=== PATIENT | female | born 1960 | race Caucasian/White ===

== ENCOUNTER 2024-11-06 13:32 | Emergency (ER) | payer MEDICARE, SELFPAY ==
[2024-11-06 13:40] VITALS: BP 161/88
--- NOTE | 2024-11-06 15:05 | ED.GENMED ---
History of Present Illness
<GANGA Conde Last Filed: 11/06/24 17:00>
General
Chief Complaint: Heart Rate Problem
Source: patient
Time Seen by Provider: 11/06/24 14:22
History of Present Illness
History of Present Illness:
64-year-old female with history of psoriatic arthritis and hypothyroidism on Skyrizi Synthroid presents complaining of significant headache to the posterior aspect of her head. She was sent in however from her family doctor's office secondary to an
EKG at a routine visit today demonstrated heart rate in the 30s. She is consistently at heart rate of 35 in the office. There is no lightheadedness or shortness of breath. There is no chest pain. She denies fevers or rash. No known tick bites.
No other complaints at this time
Phy Exam
<GANGA Conde Last Filed: 11/06/24 17:00>
Physical Exam
Physical Exam:
General: Well-appearing female no acute respiratory distress
HEENT: Normocephalic atraumatic pupils equal round reactive to light
Heart: Bradycardic but regular
Lungs: Clear no wheeze
Extremities: No cyanosis or edema
Skin warm no rash
Neurologic exam: Alert and oriented no facial asymmetry conversing appropriately no drift on exam
Course
<GANGA Conde Last Filed: 11/06/24 17:00>
Orders/Labs/Results
Orders:
Orders
11/06/24 13:33
Electrocardiogram (*1) Urgent
Reason for Study: Bradycardia / Tachycardia
EKG- Treatment ONCE
11/06/24 14:59
CT Head W/o Iv Contrast Urgent
Comment:
Reason For Exam: headache
11/06/24 15:00
Cardiac Monitoring- Treatment ONCE
11/06/24 15:14
Ketorolac [Toradol] 30 mg IV NOW STA
11/06/24 15:29
Complete Blood Count/With Diff Urgent
Comprehensive Metabolic Panel Urgent
Free T4 Urgent
Lyme Progressive Urgent
TSH Reflex To Free T4 Urgent
Abnormal Lab Results
11/06/24
15:29
MCH 33.1 H pg
(27.0-31.0)
Abs Immat Gran (auto) 0.1 H 10^3/uL
(0-0.05)
Immature Gran % 0.8 H %
(0-0.5)
Monocytes % 9.5 H %
(1.7-9.3)
BUN 20 H mg/dl
(7-17)
AST 40 H U/L
(14-36)
TSH (Reflex) 0.09 L uIU/ml
(0.47-4.68)
11/06/24 15:29
11/06/24 15:29
Vital Signs
Initial and Last Documented VS:
Initial Vital Signs
Temp Pulse Resp BP Pulse Ox
98.4 F 56 16 161/88 98
11/06/24 13:40 11/06/24 13:40 11/06/24 13:40 11/06/24 13:40 11/06/24 13:40
Last Documented Vital Signs
Temp Pulse Resp BP Pulse Ox
98.4 F 48 18 157/87 97
11/06/24 13:40 11/06/24 15:21 11/06/24 15:21 11/06/24 15:21 11/06/24 15:21
Alflt;Toribio Asif, DO - Last Filed: 11/06/24 15:17>
Orders/Labs/Results
Orders:
Orders
11/06/24 13:33
Electrocardiogram (*1) Urgent
Reason for Study: Bradycardia / Tachycardia
EKG- Treatment ONCE
11/06/24 14:59
CT Head W/o Iv Contrast Urgent
Comment:
Reason For Exam: headache
11/06/24 15:00
Cardiac Monitoring- Treatment ONCE
11/06/24 15:14
Ketorolac [Toradol] 30 mg IV NOW STA
11/06/24 15:29
Complete Blood Count/With Diff Urgent
Comprehensive Metabolic Panel Urgent
Free T4 Urgent
Lyme Progressive Urgent
TSH Reflex To Free T4 Urgent
Abnormal Lab Results
11/06/24
15:29
MCH 33.1 H pg
(27.0-31.0)
Abs Immat Gran (auto) 0.1 H 10^3/uL
(0-0.05)
Immature Gran % 0.8 H %
(0-0.5)
Monocytes % 9.5 H %
(1.7-9.3)
BUN 20 H mg/dl
(7-17)
AST 40 H U/L
(14-36)
TSH (Reflex) 0.09 L uIU/ml
(0.47-4.68)
11/06/24 15:29
11/06/24 15:29
Vital Signs
Initial and Last Documented VS:
Initial Vital Signs
Temp Pulse Resp BP Pulse Ox
98.4 F 56 16 161/88 98
11/06/24 13:40 11/06/24 13:40 11/06/24 13:40 11/06/24 13:40 11/06/24 13:40
Last Documented Vital Signs
Temp Pulse Resp BP Pulse Ox
98.4 F 48 18 157/87 97
11/06/24 13:40 11/06/24 15:21 11/06/24 15:21 11/06/24 15:21 11/06/24 15:21
<Bassem Huang PA-C - Last Filed: 11/06/24 17:00>
MDM/Problems Addressed
Differential Diagnosis Includes:
Patient with headache worsening over the past 2 days without neurologic deficit but also has associated lower heart rate. I visualized the EKG from the family doctor's office which demonstrates sinus bradycardia with a rate of 37. Her heart rate
was in the 50s the entire time I was talking to her.
Will check labs including TSH. CT head and Lyme test pending as well
<Bassem Huang PA-C - Last Filed: 11/06/24 17:00>
*Critical Care Note
Total Time (30-74mins, 75-104mins- exclusive of procedures): Not Applicable
<Bassem Huang PA-C - Last Filed: 11/06/24 17:00>
Update Note
Update Note:
Head CT negative thyroid normal. Patient has not been significantly bradycardic here and she has been asymptomatic. Discussed with emergency room attending who saw the patient as well. Stable for discharge with outpatient cardiology follow-up
peer return precautions were given
ED Attending Note
<Bassem Huang PA-C - Last Filed: 11/06/24 17:00>
-
Portions of this chart may have been created with voice recognition software.� Occasional wrong word or��sound alike� substitutions may have occurred due to the inherent limitations of voice recognition software.
<Toribio Asif DO - Last Filed: 11/06/24 15:17>
ED Attending Note
Patient seen and examined by attending physician: Yes
I performed the substantive portion of visit, reviewed & personally made and approve the management plan that is documented in note by myself or KETURAH.: Yes
ED Attending Note:
I have seen and evaluated the patient with a [id number] encounter. I have spoken to the advance practicer provider and involved in the medical history, the physical exam, medical decision making.
Evaluation and management service: agree unless noted differently below.
Results interpretation: agree unless noted differently below.
Focused HPI: 64-year-old female presenting for evaluation of asymptomatic bradycardia. She had a routine follow-up with her PCP today and noted that her heart rate was in the 30s. Patient is not on blood pressure medicine or beta-blockers. She
was sent in for evaluation. Patient does complain of headache over the past 10 days that is worse with loud sounds. She is an avid displayer and denies any shortness of breath or fatigue with activity
Physical exam: Sitting in bed comfortably. Bradycardic. Pupils equal reactive. EOMI.
Medical Decision Making: Will obtain basic blood work and thyroid testing for asymptomatic bradycardia. Will obtain CT head given persistent headache. If workup negative, will have her follow-up with cards
Discharge Plan
Departure
Patient Disposition: Home (Routine Discharge)
Date of Disposition: 11/06/24
Time of Disposition: 16:59
Patient with high blood pressure during this ER visit?: No
Discharge Problem:
Headache, Bradycardia
Referrals:
Hermelinda Bai MD [Family Provider] -
Activity Restrictions/Additional Instructions:
Stay hydrated. Please return here for worsening symptoms otherwise follow-up with your cyber legal advisor
Interventions
Interventions:
*Risk Screen - Suicide Last Done: 11/06/24 13:40
*General Assessment Last Done: 11/06/24 15:20
*Neglect/Abuse Screening Last Done: 11/06/24 13:40
*ED- Fall Risk Assessment Last Done: 11/06/24 15:20
*ED COVID-19 Vaccine History Last Done: 11/06/24 15:20
Discharge Date and Time
Print Language: CYMRO
[2024-11-06 15:18] VITALS: BMI 25.8
[2024-11-06 15:21] VITALS: BP 157/87
[2024-11-06] MEDS: TORADOL 30 MG IV (15:31)
[2024-11-06 15:38] LABS: % Basophils 1.1 % (0-2); % Eosinophils 0.8 % (0-6); % Immature Granulocytes 0.8 % (0-0.5); % Lymphocytes 30.3 % (20.5-51.1); % Monocytes 9.5 % (1.7-9.3); % Neutrophils 57.5 % (42.2-75.2); Absolute Basophils 0.1 10^3/uL (0-0.2); Absolute Eosinophils 0.1 10^3/uL (0-0.7); Absolute Immature Granulocytes 0.1 10^3/uL (0-0.05); Absolute Monocytes 0.6 10^3/uL (0.1-0.6); Absolute Neutrophils 3.7 10^3/uL (1.4-6.5); Hematocrit 40.8 % (37.0-47.0); Hemoglobin 13.9 g/dL (12.0-16.0); Mean Corp Hgb Conc. 34.1 g/dL (33.0-37.0); Mean Corpuscular Hgb 33.1 pg (27.0-31.0); Mean Corpuscular Volume 97.1 fL (81.0-99.0); Mean Platelet Volume 10.4 fL (7.4-10.4); Nucleated Red Blood Cells % 0 %; Platelet Count 215 10^3/uL (130-400); Red Cell Dist. Width 12.5 % (11.5-14.5); White Blood Cell Count 6.4 10^3/uL (4.8-10.8)
[2024-11-06 15:48] LABS: ALT (SGPT) 32 U/L (0-35); AST (SGOT) 40 U/L (14-36); Albumin 4.4 g/dl (3.5-5.0); Alkaline Phosphatase 65 U/L (38-126); Blood Urea Nitrogen 20 mg/dl (7-17); Calcium 10.1 mg/dl (8.4-10.2); Carbon Dioxide 27 mmol/L (22-30); Chloride 106 mmol/L (98-107); Estimated Creatinine Clearance 81 ml/min; Glucose 97 mg/dl (70-99); Potassium 4.1 mmol/L (3.5-5.1); Sodium 141 mmol/L (135-145); Total Bilirubin 1.1 mg/dl (0.2-1.3); Total Protein 7.3 g/dl (6.3-8.2); eGFR > 60.00
[2024-11-06 16:00] VITALS: BP 154/86
[2024-11-06 16:18] LABS: TSH Reflex To Free T4 0.09 uIU/ml (0.47-4.68)
[2024-11-06 17:00] VITALS: BP 145/85
[2024-11-07 10:38] LABS: Lyme Antibody Screen, EIA Negative (Negative)
== END 2024-11-06 17:33 | disposition home or self-care (01) ==
LOC: EMR 13:32
PROVIDERS: Physician Assistant; EMERGENCY PHYSICIAN Student in an Organized Health Care Education/Training Program; FAMILY PHYSICIAN Internal Medicine
DX: R51.9 Headache, unspecified (principal); R00.1 Bradycardia, unspecified; E03.9 Hypothyroidism, unspecified; Z79.899 Other long term (current) drug therapy
CPT/HCPCS: 99284; 96374; 70450; 80053; 84439; 84443; 85025; 86618; 93005